=== PATIENT | female | born 1980 | race American Indian/Alaskan Native ===

== ENCOUNTER 2021-11-12 13:20 | Emergency (ER) | payer OTHER ==
[2021-11-12] MEDS ORDERED: SODIUM CHLORIDE 0.9% 1000 ML 1,000 ML ONE ×2 (18:23→18:51)
[2021-11-12] MEDS ORDERED: KETOROLAC 30 MG/1 ML INJ ONE (18:29)
[2021-11-12] MEDS ORDERED: diphenhydrAMINE 50 MG/ML VIAL ONE (18:30)
--- NOTE | 2021-11-12 21:24 | Emergency Department Report ---
- General Chief Complaint: Headache Stated Complaint: HEADACHE/COVID Time Seen by Provider: 11/12/21 21:21 Source: EMS Mode of arrival: Ambulatory Limitations: Language Barrier - History of Present Illness Initial Comments: 48-year-old female who presented with sore throat that started about 3 days ago progressively getting worse. Patient also reports some diffuse headache with generalized body aches. No fever reported but chills. Appetite is decreased. Patient has not been protected with COVID vaccine. No other modifying or associated factors reported. - Related Data Allergies Allergy/AdvReac Type Severity Reaction Status Date / Time No Known Allergies Allergy Verified 11/12/21 18:28 ED Review of Systems ROS: Stated complaint: HEADACHE/COVID Other details as noted in HPI Comment: All other systems reviewed and negative ENT: throat pain ED Physical Exam - General Limitations: Language Barrier General appearance: alert, in no apparent distress - Head Head exam: Present: normal inspection - Eye Eye exam: Present: normal appearance - ENT ENT exam: Present: mucous membranes moist, TM's normal bilaterally, other (Tonsillar erythema without exudate) - Neck Neck exam: Present: normal inspection - Respiratory Respiratory exam: Present: normal lung sounds bilaterally. Absent: respiratory distress, accessory muscle use - Cardiovascular Cardiovascular Exam: Present: regular rate, normal rhythm, normal heart sounds - GI/Abdominal GI/Abdominal exam: Present: soft, normal bowel sounds. Absent: distended, tenderness - Extremities Exam Extremities exam: Present: normal inspection, full ROM, normal capillary refill. Absent: tenderness - Back Exam Back exam: Absent: tenderness - Neurological Exam Neurological exam: Present: alert, oriented X3 - Psychiatric Psychiatric exam: Present: normal affect, normal mood - Skin Skin exam: Present: warm, normal color ED Course Vital Signs 11/12/21 13:37 Temperature 98.4 F Pulse Rate 97 H Respiratory 16 Rate Blood Pressure 123/70 [Left] O2 Sat by Pulse 96 Oximetry - Reevaluation(s) Reevaluation #1: 11/12/21 21:26 Here with sore throat and body headaches for 3 days with headache--we will go ahead and check for rapid strep and rapid flu--given IV fluids for hydration and Benadryl plus Toradol for headache-- Reevaluation #2: 11/12/21 22:04 pt reports feeling much better and will like to be discharge home --both labs reports negative for RST and influenza-- Critical care attestation.: If time is entered above; I have spent that time in minutes in the direct care of this critically ill patient, excluding procedure time. ED Disposition Clinical Impression: Sore throat, Generalized muscle ache Headache Qualifiers: Headache type: unspecified Headache chronicity pattern: unspecified pattern Intractability: not intractable Qualified Code(s): R51.9 - Headache, unspecified Upper respiratory infection Qualifiers: URI type: unspecified URI Qualified Code(s): J06.9 - Acute upper respiratory infection, unspecified Disposition: 01 HOME / SELF CARE / HOMELESS Is pt being admited?: No Does the pt Need Aspirin: No Condition: Stable Instructions: Viral Respiratory Infection, [id number], Upper Respiratory Infection, Adult, [id number], Sore Throat, [id number], Pharyngitis, [id number] Additional Instructions: Increase your daily fluid to help your hydration It is okay to take Tylenol/ibuprofen every 6-8 hours as needed for pain Call and schedule follow-up with your primary doctor in the next 3 to 5 days for progress Please do not hesitate to call or return to emergency room if your symptoms worsen Time of Disposition: 22:07
[2021-11-12 22:18] VITALS: BP 120/67
== END 2021-11-12 22:20 | disposition home or self-care (01) ==
LOC: ED 13:20
DX: J06.9 Acute upper respiratory infection, unspecified (principal); J02.9 Acute pharyngitis, unspecified; M79.10 Myalgia, unspecified site; R51.9 Headache, unspecified
CPT/HCPCS: 87116; 87430; 87502; 99283; J1200; J1885; J7030